=== PATIENT | male | born 1945 | race Caucasian/White ===

== ENCOUNTER 2019-08-04 12:39 | Day surgery (SDC) | payer MEDICARE, MEDICAID ==
[2019-08-04] VITALS (9 sets, daily range): BP systolic 123–167; BP diastolic 73–92
[~2019-08-04] VITALS: Ht 177.8 cm; Wt 70.5 kg
[2019-08-04] MEDS ORDERED: ALLO100T PO (13:10)
[2019-08-04] MEDS ORDERED: AMIO200T54 PO (13:10)
[2019-08-04] MEDS ORDERED: ASPI81TA44 PO (13:10)
[2019-08-04] MEDS ORDERED: NIFE90TA2 PO (13:10)
[2019-08-04] MEDS ORDERED: LABE100T5 PO (13:10)
[2019-08-04] MEDS ORDERED: DIPH-735 PO (13:10)
[2019-08-04] MEDS ORDERED: PRAV20TA4 PO (13:10)
[2019-08-04] MEDS ORDERED: LEVO125T PO (13:10)
[2019-08-04 13:14] LABS: BASOPHILS # (AUTO) 0.1 X10'3 (0-0.2); BASOPHILS % (AUTO) 1.2 % (0-1); EOSINOPHILS % (AUTO) 13.9 % (0-6); HEMATOCRIT 32.6 % (42.0-52.0); HEMOGLOBIN 10.9 g/dl (14.0-17.9); LYMPHOCYTES # (AUTO) 0.7 X10'3 (1.1-4.8); LYMPHOCYTES % (AUTO) 10.3 % (21-51); MEAN CORPUSCULAR HEMOGLOBIN 32.4 PG (27.0-31.0); MEAN CORPUSCULAR HGB CONC 33.3 g/dL (33.0-36.5); MEAN CORPUSCULAR VOLUME 97.1 FL (78-98); MEAN PLATELET VOLUME 7.5 FL (7.4-10.4); MONOCYTES # (AUTO) 0.4 X10'3 (0-0.9); MONOCYTES % (AUTO) 5.8 % (2-12); NEUTROPHILS # (AUTO) 4.8 X10'3 (1.8-7.7); NEUTROPHILS % (AUTO) 68.8 % (42-75); PLATELET COUNT 171 X10'3 (140-440); RED BLOOD COUNT 3.36 X10'6 (4.70-6.10); WHITE BLOOD COUNT 6.9 X10'3 (4.5-11.0)
[2019-08-04] MEDS ORDERED: normal saline 1,000 ML IV SCH (13:20)
[2019-08-04] MEDS ORDERED: diphenhydrAMINE 25mg capsule PO PRN (13:20)
[2019-08-04 13:21] LABS: ALBUMIN 3.7 G/DL (3.4-5.0); ANION GAP 12 (8-16); BLOOD UREA NITROGEN 42 MG/DL (7-18); BUN/CREATININE RATIO 14.6 (5.4-32.0); CALCIUM 8.6 MG/DL (8.5-10.1); CHLORIDE 109 MMOL/L (99-107); CREATININE 2.87 MG/DL (0.60-1.10); GLUCOSE 90 MG/DL (70-104); MAGNESIUM 1.8 MG/DL (1.5-2.4); POTASSIUM 4.3 MMOL/L (3.5-5.1); SODIUM 143 MMOL/L (135-145); TOTAL CARBON DIOXIDE 21.9 MMOL/L (24-32); eGFR 22 ML/MIN
[2019-08-04] MEDS ORDERED: WATER IV ONE ×4 (13:35→16:55)
[2019-08-04] MEDS ORDERED: DEXTROSE IV ONE ×4 (13:35→16:55)
[2019-08-04] MEDS ORDERED: SODIUM BICARBONATE IV ONE ×4 (13:35→16:55)
[2019-08-04] MEDS ORDERED: fentaNYL/PF 50MCG/1 ML 2ML syringe ONE (14:14)
[2019-08-04] MEDS ORDERED: iohexol 350 MG/ML 50ML vial IV ONE (14:14)
[2019-08-04] MEDS ORDERED: midazolam 2 mg/2 ml injection ONE (14:14)
[2019-08-04] MEDS ORDERED: iohexol 350MG/ML 100ml bottle IV ONE (14:14)
[2019-08-04] MEDS ORDERED: LIDOcaine 1% (10mg/ml)w/preservative injection 20ml MDV ONE (14:14)
[2019-08-04] MEDS ORDERED: heparin 1,000unit/ml 10ml vial 10 ML ONE (16:05)
[2019-08-04] MEDS ORDERED: clopidogrel 300mg tablet ONE (16:12)
[2019-08-04] MEDS ORDERED: HYDROcodone/acetaminophen 10/325mg tab PO PRN (17:00)
[2019-08-04] MEDS ORDERED: HYDROcodone/acetaminophen 5mg/325mg tablet PO PRN (17:00)
[2019-08-04] MEDS ORDERED: mag hydrox/Alum hydrox/simeth 30ml oral suspension PO ONE (17:00)
[2019-08-04] MEDS ORDERED: ondansetron/PF 4mg/2ml inj IV PRN (17:00)
[2019-08-04] MEDS ORDERED: proCHLORperazine 10 MG/2 ml inj IV PRN (17:00)
== END 2019-08-04 19:10 | disposition home or self-care (01) ==
LOC: SSTAY O 12:39
PROVIDERS: ATTEND Internal Medicine Cardiovascular Disease
DX: I25.728 Atherosclerosis of autologous artery coronary artery bypass graft(s) with other forms of angina pectoris (principal); I25.82 Chronic total occlusion of coronary artery; G47.30 Sleep apnea, unspecified; I48.0 Paroxysmal atrial fibrillation; I48.3 Typical atrial flutter; E03.9 Hypothyroidism, unspecified; M10.9 Gout, unspecified; I10 Essential (primary) hypertension; E11.9 Type 2 diabetes mellitus without complications; I49.5 Sick sinus syndrome; E78.5 Hyperlipidemia, unspecified; Z86.73 Personal history of transient ischemic attack (TIA), and cerebral infarction without residual deficits; Z79.899 Other long term (current) drug therapy; Z79.82 Long term (current) use of aspirin; Z95.0 Presence of cardiac pacemaker; Z90.49 Acquired absence of other specified parts of digestive tract; Z88.2 Allergy status to sulfonamides; Z88.8 Allergy status to other drugs, medicaments and biological substances
CPT/HCPCS: 36415; 80048; 83735; 85025; 85610; 93005; 93459; 99152; 99153; C1769; C1874; C1894; C9604; J1644; J2001; J2250; J3010; J7030; Q0163; Q9967; A4620; A6258; C1760